=== PATIENT | female | born 1990 | race Hispanic/Latino ===

== ENCOUNTER 2018-04-20 11:54 | Emergency (ER) | payer SELFPAY | END 2018-04-20 12:19 | disposition home or self-care (01) | LOC: EDH 11:54 | DX: F43.0 Acute stress reaction (principal) ==

== ENCOUNTER 2019-10-12 07:09 | Emergency (ER) | payer OTHER ==
[2019-10-12] MEDS ORDERED: KETOROLAC TROMETHAMINE 15MG/ML ONE (08:13)
== END 2019-10-12 08:04 | disposition home or self-care (01) ==
LOC: EDH 07:09
DX: S60.417A Abrasion of left little finger, initial encounter (principal); W19.XXXA Unspecified fall, initial encounter; Y93.89 Activity, other specified; Y92.89 Other specified places as the place of occurrence of the external cause; Y99.0 Civilian activity done for income or pay
CPT/HCPCS: 99283; J1885

== ENCOUNTER 2021-03-15 21:04 | Emergency (ER) | payer OTHER ==
[2021-03-15 21:39] LABS: BASOPHILS % (AUTO) 0.1 % (0.0-5.0); EOSINOPHILS % (AUTO) 0.3 % (0.0-8.0); HEMATOCRIT 41.5 % (36-48); LYMPHOCYTES % (AUTO) 23.9 % (21.0-51.0); MEAN CORPUSCULAR HEMOGLOBIN 28.3 pg (27.0-33.0); MEAN CORPUSCULAR HGB CONC 33.7 g/dL (32.0-36.0); MEAN CORPUSCULAR VOLUME 83.8 fL (79-99); MONOCYTES % (AUTO) 4.7 % (3.0-13.0); NEUTROPHILS % (AUTO) 70.6 % (40.0-77.0); PLATELET COUNT (AUTO) 264 K/uL (130-400); RED BLOOD CELL COUNT(AUTO) 4.95 MIL/uL (4.00-5.50); RED CELL DISTRIBUTION WIDTH 12.6 % (11.0-15.5); WHITE BLOOD COUNT (AUTO) 7.9 K/uL (4.8-10.8)
[2021-03-15 21:41] LABS: APPEARANCE,URINE Clear (CLEAR); BILIRUBIN,URINE Negative (NEGATIVE); COLOR,URINE Yellow (YELLOW); GLUCOSE, URINE (UA) Negative (NEGATIVE); KETONES,URINE Negative (NEGATIVE); LEUKOCYTE ESTERASE ,URINE Trace (NEGATIVE); NITRATE,URINE Negative (NEGATIVE); OCCULT BLOOD,URINE Small (NEGATIVE); PROTEIN,URINE Negative (NEGATIVE); UROBILINOGEN,URINE 0.2 mg/dL (0.2-1.0)
[2021-03-15 21:46] LABS: HCG,QUAL RESULT NEGATIVE (NEGATIVE)
[2021-03-15] MEDS ORDERED: KETOROLAC TROMETHAMINE 60 MG/2 ML VIAL ONE (21:52)
[2021-03-15] MEDS ORDERED: CYCLOBENZAPRINE HCL 10 MG TABLET ONE (21:53)
[2021-03-15 21:55] LABS: POTASSIUM 3.7 mmol/L (3.5-5.1)
[2021-03-15 21:59] LABS: ALBUMIN 4.5 g/dL (3.5-5.0); BILIRUBIN,TOTAL 0.7 mg/dL (0.2-1.0); TOTAL PROTEIN, SERUM 8.3 g/dL (6.0-8.3)
[2021-03-15 22:03] LABS: BACTERIA,URINE Few /HPF (None Seen); RBC,URINE None Seen /HPF (0-1); WBC,URINE 0-1 /HPF (0-1)
== END 2021-03-15 22:15 | disposition home or self-care (01) ==
LOC: EDH 21:04
DX: M94.0 Chondrocostal junction syndrome [Tietze] (principal)
CPT/HCPCS: 36415; 71045; 80053; 81001; 81025; 83690; 84484; 85025; 93005; 96372; 99285; J1885

== ENCOUNTER 2021-04-18 02:07 | Emergency (ER) | payer OTHER | END 2021-04-18 03:48 | disposition home or self-care (01) | LOC: EDH 02:07 | DX: F41.8 Other specified anxiety disorders (principal); R06.02 Shortness of breath; J45.909 Unspecified asthma, uncomplicated; Z20.822 Contact with and (suspected) exposure to COVID-19 | CPT/HCPCS: 87426; 87880 ==

== ENCOUNTER 2021-06-07 22:37 | Emergency (ER) | payer OTHER, SELFPAY ==
[~2021-06-07] VITALS: Ht 165.1 cm; Wt 81.6 kg
[2021-06-07 22:38] VITALS: BP 112/79
[2021-06-08] MEDS ORDERED: LIDOCAINE HCL 2% VISCOUS 15 ML UDCUP PO ONE
[2021-06-08] MEDS ORDERED: MAG/ALUM/SIMETH 30 ML UDCUP PO ONE
[2021-06-08] MEDS ORDERED: PANT40TA54 PO (00:10)
== END 2021-06-08 00:22 | disposition home or self-care (01) ==
LOC: EDH 22:37
DX: S27.818A Other injury of esophagus (thoracic part), initial encounter (principal); X58.XXXA Exposure to other specified factors, initial encounter; Y93.9 Activity, unspecified; Y92.89 Other specified places as the place of occurrence of the external cause; Y99.8 Other external cause status
CPT/HCPCS: 70360

== ENCOUNTER 2021-06-12 03:33 | Emergency (ER) | payer OTHER ==
[~2021-06-12] VITALS: Ht 165.1 cm; Wt 78.5 kg
[~2021-06-12 03:33] MED LIST: PANT40TA54 PO
[2021-06-12 04:05] VITALS: BP 135/93
[2021-06-12] MEDS ORDERED: FAMOTIDINE 20MG TAB ONE (04:55)
[2021-06-12] MEDS ORDERED: MAG/ALUM/SIMETH 30 ML UDCUP ONE (04:55)
[2021-06-12] MEDS ORDERED: LIDOCAINE HCL 2% VISCOUS 15 ML UDCUP ONE (04:56)
[2021-06-12] MEDS ORDERED: MAG/ALUM/SIMETH 30 ML UDCUP PO ONE (05:00)
[2021-06-12] MEDS ORDERED: LIDOCAINE HCL 2% VISCOUS 15 ML UDCUP PO ONE (05:00)
[2021-06-12] MEDS ORDERED: 0.9%NACL 1000ML 1,000 ML IV ONE ×2 (05:00→05:11)
[2021-06-12] MEDS ORDERED: FAMOTIDINE 20MG TAB PO ONE (05:00)
[2021-06-12 05:26] LABS: CREATININE 0.8 mg/dL (0.5-1.5); POTASSIUM 4.4 mmol/L (3.5-5.1)
[2021-06-12] MEDS ORDERED: IOHEXOL 350 MG/ML 100ML INFUS..BTL IV ONE (05:46)
[2021-06-12 06:08] VITALS: BP 126/82
[2021-06-12] MEDS ORDERED: BENZ-17 PO (07:30)
[2021-06-12] MEDS ORDERED: PANT40TA54 PO (07:30)
[2021-06-12] MEDS ORDERED: METO-296 PO (07:30)
== END 2021-06-12 07:40 | disposition home or self-care (01) ==
LOC: EDH 03:33
DX: S27.818A Other injury of esophagus (thoracic part), initial encounter (principal); Z79.899 Other long term (current) drug therapy; X58.XXXA Exposure to other specified factors, initial encounter; Y93.89 Activity, other specified; Y92.89 Other specified places as the place of occurrence of the external cause; Y99.8 Other external cause status
CPT/HCPCS: 36415; 70491; 80048; 81025; 96360; 99285; J7030; Q9967

== ENCOUNTER 2021-07-30 10:44 | Emergency (ER) | payer SELFPAY ==
[~2021-07-30] VITALS: Ht 165.1 cm; Wt 79.4 kg
[~2021-07-30 10:44] MED LIST changes: +BENZ-17 PO; +METO-296 PO
[2021-07-30 11:00] VITALS: BP 122/83
[2021-07-30 11:43] LABS: APPEARANCE,URINE Clear (CLEAR); BILIRUBIN,URINE Negative (NEGATIVE); COLOR,URINE Yellow (YELLOW); GLUCOSE, URINE (UA) Negative (NEGATIVE); KETONES,URINE Negative (NEGATIVE); LEUKOCYTE ESTERASE ,URINE Large (NEGATIVE); NITRATE,URINE Negative (NEGATIVE); OCCULT BLOOD,URINE Trace (NEGATIVE); PH,URINE 6.5 (5.0-8.0); PROTEIN,URINE Negative (NEGATIVE); UROBILINOGEN,URINE 0.2 mg/dL (0.2-1.0)
[2021-07-30 12:01] LABS: BACTERIA,URINE Rare /HPF (None Seen); RBC,URINE 0-1 /HPF (0-1)
[2021-07-30 12:02] LABS: SQUAMOUS EPITHELIAL CELL,UR Few /HPF (0-2)
[2021-07-30 12:40] LABS: HCG,QUAL RESULT NEGATIVE (NEGATIVE)
[2021-07-30 12:48] LABS: AMPHET/METH SCREEN,URINE NEGATIVE (NEGATIVE); BARBITURATE SCREEN, URINE NEGATIVE (NEGATIVE); BENZODIAZEPINES SCREEN,URINE NEGATIVE (NEGATIVE); CANNABINOID SCREEN,URINE NEGATIVE (NEGATIVE); COCAINE SCREEN,URINE NEGATIVE (NEGATIVE); OPIATE SCREEN,URINE NEGATIVE (NEGATIVE); PHENCYCLIDINE SCREEN,URINE NEGATIVE (NEGATIVE)
[2021-07-30 12:58] LABS: BASOPHILS % (AUTO) 0.3 % (0.0-5.0); EOSINOPHILS % (AUTO) 0.4 % (0.0-8.0); HEMATOCRIT 39.4 % (36-48); LYMPHOCYTES % (AUTO) 26.7 % (21.0-51.0); MEAN CORPUSCULAR HEMOGLOBIN 29.6 pg (27.0-33.0); MEAN CORPUSCULAR HGB CONC 34.8 g/dL (32.0-36.0); MEAN CORPUSCULAR VOLUME 85.1 fL (79-99); MONOCYTES % (AUTO) 6.7 % (3.0-13.0); NEUTROPHILS % (AUTO) 65.6 % (40.0-77.0); PLATELET COUNT (AUTO) 277 K/uL (130-400); RED BLOOD CELL COUNT(AUTO) 4.63 MIL/uL (4.00-5.50); RED CELL DISTRIBUTION WIDTH 12.4 % (11.0-15.5); WHITE BLOOD COUNT (AUTO) 6.7 K/uL (4.8-10.8)
[2021-07-30 13:05] LABS: CREATININE 0.7 mg/dL (0.5-1.5); POTASSIUM 4.4 mmol/L (3.5-5.1)
[2021-07-30 13:10] LABS: ALBUMIN 4.2 g/dL (3.5-5.0); BILIRUBIN,TOTAL 0.7 mg/dL (0.2-1.0)
[2021-07-30] MEDS ORDERED: ONDA4TAB10 PO (13:56)
[2021-07-30] MEDS ORDERED: CEPH500B PO (13:56)
[2021-07-30] MEDS ORDERED: KETOROLAC 30MG VIAL (30MG/ML) IM SCH (14:00)
[2021-07-30] MEDS ORDERED: ONDANSETRON ODT 4MG TAB SL SCH (14:00)
[2021-07-30] MEDS ORDERED: CEFTRIAXONE 1G VIAL IM SCH (14:00)
== END 2021-07-30 14:22 | disposition home or self-care (01) ==
LOC: EDH 10:44
DX: N39.0 Urinary tract infection, site not specified (principal); R07.89 Other chest pain; Z79.1 Long term (current) use of non-steroidal anti-inflammatories (NSAID); Z79.899 Other long term (current) drug therapy
CPT/HCPCS: 36415; 71045; 80053; 80305; 81001; 81025; 82550; 84484; 85025; 87088; 93005; 96372 ×2; 99285; J0696; J1885

== ENCOUNTER 2021-09-13 01:24 | Emergency (ER) | payer SELFPAY ==
[~2021-09-13] VITALS: Ht 165.1 cm; Wt 78.5 kg
[~2021-09-13 01:24] MED LIST changes: +CEPH500B PO; +ONDA4TAB10 PO
[2021-09-13 02:54] VITALS: BP 127/74
== END 2021-09-13 03:35 | disposition home or self-care (01) ==
LOC: EDH 01:24
DX: J02.9 Acute pharyngitis, unspecified (principal); Z79.899 Other long term (current) drug therapy; M54.2 Cervicalgia
CPT/HCPCS: 87880